=== PATIENT | male | born 1955 | race Caucasian/White ===

== ENCOUNTER → 2017-11-18 | Outpatient (CLI) | payer BC ==
[~2017-11-18] MED LIST: ALBUDR INH; ASCO-182 PO; ATOR20TA22 PO; AUG875 PO; BEN100 PO; CHOL10005 PO; CICPT NS; CODE118S5 PO; GUAI237S60 PO; GUALA600 PO; NONE NOW; OMEG10007; OXYM30MI5 NS; PIRO-1 PO
[2017-11-18 10:07] LABS: PLATELET COUNT, AUTOMATED 177 K/uL (150-450)
[2017-11-18 10:28] LABS: LDL CHOLESTEROL 59 mg/dl
== END ==
LOC: LAB 09:39
PROVIDERS: ATTEND Internal Medicine
DX: E78.5 Hyperlipidemia, unspecified (principal)
CPT/HCPCS: 36415; 82040; 82247; 82310; 82374; 82435; 82465; 82565; 82947; 83718; 84075; 84132; 84155; 84295; 84443; 84450; 84460; 84478; 84520; 85025

== ENCOUNTER 2018-10-11 01:04 | Day surgery (SDC) | payer BC ==
[~2018-10-11] VITALS: Ht 167.6 cm; Wt 86.2 kg
[~2018-10-11 01:04] MED LIST changes: +ATOR40TA69 PO; +FLU60VIA41 IM
[2018-10-11] MEDS ORDERED: PROPOFOL EMUL(*) 10MG/ML 20 ML 20 ML ONE (07:03)
[2018-10-11 07:19] VITALS: BP 132/85
[2018-10-11] MEDS ORDERED: NORMOSOL R SOLN(*) 1000 ML BAG 1,000 ML IV PRN (07:25)
[2018-10-11] MEDS ORDERED: LIDOCAINE/SOD BICARB 8.4% SYR ID ONE (07:25)
[2018-10-11 08:31] VITALS: BP 113/78
--- NOTE | 2018-10-11 08:38 | Short(Outpt) Discharge Summary ---
Discharge Summary Reason for Hosp/Final Diag: (1) Colon cancer screening Status: Chronic Hospital Course & Plan: Colonoscopy completed without problems; normal. Departure Discharge to: Home, Self Care Discharge Instructions Home Meds Reported Medications Atorvastatin Calcium (ATORVASTATIN CALCIUM) 40 Mg Tablet, 1 TAB PO QDAY, TAB 11/23/17 Ascorbic Acid (VITAMIN C) 500 Mg Tablet, 500 MG PO, TAB 07/27/17 Diet: Regular Activity: As Tolerated Special Instructions: Your colonoscopy was completed without any problems and your prep was excellent (Good Job!!). I didn't find any polyps or other abnormalities, it was completely normal. I recommend that you have another colonoscopy in 10 years (at 72 years old). Have a [facility]! Copies to: ERIN PETTIT MD ; TD PATTERSON MD Oct 11, 2018 08:38
[2018-10-11 08:45] VITALS: BP 103/82
[2018-10-11 09:15] VITALS: BP 107/81
[2018-10-11 09:27] VITALS: BP 131/115
[2018-10-11 09:29] VITALS: BP 108/83
== END 2018-10-11 09:50 | disposition home or self-care (01) ==
LOC: OR 01:04
PROVIDERS: ATTEND Surgery
DX: Z12.11 Encounter for screening for malignant neoplasm of colon (principal)
CPT/HCPCS: 00812; G0121; J2704